=== PATIENT | male | born 1990 | race African-American/Black ===

== ENCOUNTER 2019-07-13 00:41 | Emergency (ER) | payer SELFPAY ==
[~2019-07-13] VITALS: Ht 177.8 cm; Wt 136.4 kg
[2019-07-13 01:00] VITALS: BP 150/91
== END 2019-07-13 01:19 | disposition home or self-care (01) ==
LOC: EMS 00:45
DX: Z00.00 Encounter for general adult medical examination without abnormal findings (principal)